=== PATIENT | male | born 2000 | race Caucasian/White ===

== ENCOUNTER 2022-05-15 10:23 | Emergency (ER) | payer OTHER, SELFPAY ==
[2022-05-15 10:55] VITALS: BP 136/84; PULSE 72; RESP 15; TEMP 36.2; O2SAT 99; BMI 29.5
--- NOTE | 2022-05-15 10:56 | DI.RAD.S_ITS ---
PROCEDURE: XR ANKLE LT MIN 3V INDICATIONS: rolled left ankle TECHNIQUE: 3 views of the ankle were acquired. COMPARISON: None. FINDINGS: Bones: No fractures or dislocations. Ankle mortise is normally aligned. No suspicious bony lesions. Soft tissues: Possible tibiotalar joint effusion. Achilles tendon appears normal. IMPRESSION: 1. No acute fracture visualized. 2. Possible tibiotalar joint effusion. 3. If symptoms persist, follow-up radiographs and/or CT or MRI may be helpful for further evaluation. Dictated by: Aftab Baker M.D. on 05/15/2022 at 10:33 Approved by: Aftab Baker M.D. on 05/15/2022 at 10:36
--- NOTE | 2022-05-15 12:50 | ED_ITS ---
HPI - Extremity Injury (Lower) <MARIKA Lu - Last Filed: 05/15/22 15:16> General Chief Complaint: Extremity Injury, Lower Stated Complaint: left ankle injury Time Seen by Provider: 05/15/22 12:50 Source: patient Mode of arrival: Ambulatory History of Present Illness HPI Narrative: This is a 21-year-old male presents to the emergency department after he rolled his ankle last night on a run, states that it became swollen and he has pain on the lateral aspect of his left ankle with any flexion or extension of ankle, denies pain with bearing weight and complains of pain only bending of the ankle. He denies any open wound, states that he took ibuprofen and Tylenol last night which was helpful, has not taken any medication today. He is active and will need a work note if he is unable to go to work. He is concerned about a fracture versus a bad sprain. Related Data Allergies Allergy/AdvReac Type Severity Reaction Status Date / Time No Known Drug Allergies Allergy Verified 05/15/22 10:55 Review of Systems <MARIKA Lu - Last Filed: 05/15/22 15:16> Review of Systems Narrative: Review of systems is negative for acute abnormalities unless otherwise noted in HPI Patient History <MARIKA Lu - Last Filed: 05/15/22 15:16> Social History Smoking Status: Unknown if ever smoked Smoking Status: Unknown if ever smoked alcohol intake frequency: holidays/special occasions only Substance Use Type: does not use Exam <MARIKA Lu - Last Filed: 05/15/22 15:16> Narrative Exam Narrative: Left ankle is neurovascularly intact with appropriate cap refill, extension and flexion of digits, sensation intact to foot throughout, lateral ankle is edematous, ecchymotic, and patient has tenderness over the lateral malleolus although there is numbness due to edema over the lateral malleolus. The edema is consistent throughout the lateral and anterior aspect and mild edema present on the medial aspect, nontender over his medial malleolus, Achilles tendon, proximal 5th and 1st metatarsals. No proximal tib/fib pain, no knee pain at all and patient has tenderness over the ATF, ATT and CFL ligaments. Initial Vital Signs Initial Vital Signs: Vital Signs Temperature 97.2 F L 05/15/22 10:55 Pulse Rate 72 05/15/22 10:55 Respiratory Rate 15 05/15/22 10:55 Blood Pressure 136/84 05/15/22 10:55 Pulse Oximetry 99 05/15/22 10:55 Oxygen Delivery Method 05/15/22 10:55 <Jackie Gonzalez DO - Last Filed: 05/16/22 11:49> Initial Vital Signs Initial Vital Signs: Vital Signs Temperature 97.2 F L 05/15/22 10:55 Pulse Rate 72 05/15/22 10:55 Respiratory Rate 15 05/15/22 10:55 Blood Pressure 136/84 05/15/22 10:55 Pulse Oximetry 99 05/15/22 10:55 Oxygen Delivery Method 05/15/22 10:55 Procedures <MARIKA Lu - Last Filed: 05/15/22 15:16> Orthopedic Splinting/Casting Injury #1: Side: left Lower Extremity Injury Location: ankle Lower Extremity Immobilizer: boot orthosis Other Orthopedic Equipment: crutches Post splinting neuro exam: intact Post splinting vascular exam: intact Placed by: Nursing Course <MARIKA Lu - Last Filed: 05/15/22 15:16> Orders Ordered: Discontinued Medications Acetaminophen (Acetaminophen 325 Mg Tablet) 975 mg PO NOW ONE Stop: 05/15/22 12:51 Last Admin: 05/15/22 13:18 Dose: 975 mg Documented By: AT Ketorolac Tromethamine (Ketorolac 30 Mg/Ml Vial) 30 mg IM NOW ONE Stop: 05/15/22 12:51 Last Admin: 05/15/22 13:19 Dose: 30 mg Documented By: AT Vital Signs Vital signs: Vital Signs - 8 hr 05/15/22 10:55 Temperature 97.2 F L Pulse Rate 72 Respiratory Rate 15 Blood Pressure 136/84 Pulse Oximetry 99 Oxygen Delivery Method Room Air <Jackie Gonzalez DO - Last Filed: 05/16/22 11:49> Orders Ordered: Discontinued Medications Acetaminophen (Acetaminophen 325 Mg Tablet) 975 mg PO NOW ONE Stop: 05/15/22 12:51 Last Admin: 05/15/22 13:18 Dose: 975 mg Documented By: AT Ketorolac Tromethamine (Ketorolac 30 Mg/Ml Vial) 30 mg IM NOW ONE Stop: 05/15/22 12:51 Last Admin: 05/15/22 13:19 Dose: 30 mg Documented By: AT Vital Signs Vital signs: Vital Signs - 8 hr 05/15/22 10:55 Temperature 97.2 F L Pulse Rate 72 Respiratory Rate 15 Blood Pressure 136/84 Pulse Oximetry 99 Oxygen Delivery Method Room Air [facility] - Extremity Injury (Lower) <MARIKA Lu - Last Filed: 05/15/22 15:16> Imaging Data Extremity x-ray #1: Radiologist's Impression: PROCEDURE:? XR ANKLE LT MIN 3V ? INDICATIONS:? rolled left ankle ? TECHNIQUE:? 3 views of the ankle were acquired.? ? COMPARISON:? None. ? FINDINGS:? ? Bones:? No fractures or dislocations.? Ankle mortise is normally aligned.? No suspicious bony lesions.? ? Soft tissues:? Possible tibiotalar joint effusion.? Achilles tendon appears normal.? ? ? IMPRESSION:? 1. No acute fracture visualized. 2. Possible tibiotalar joint effusion. 3. If symptoms persist, follow-up radiographs and/or CT or MRI may be helpful for further evaluation. ?? ? Dictated by: Aftab Baker M.D. on 05/15/2022 at 10:33 ? ? Approved by: Aftab Baker M.D. on 05/15/2022 at 10:36 ? [facility] Narrative Medical decision making narrative: Neurovascularly intact, likely ankle sprain. Discussed conservative measures including rest, elevation, alternating application of ice, pain control and early ambulation as tolerated. No gross ankle instability. No evidence of scott-neue. Exam is pertinent for tenderness over the lateral malleolus, ATT, ATF, and CFL ligaments for his left ankle with ecchymosis, edema and is without pain with axial load through the ankle or medial malleolar pain. Patient was fitted in a walking boot, given crutches for weight-bearing as tolerated, encouraged to follow-up with [facility] approval to follow-up at [facility] in 1 week or less. No bony or soft tissue deformity. There is soft tissue swelling. No tenderness along fibula. No medial malleolar pain. No midfoot pain or pain at base of 5th metatarsal. With compression of proximal tib-fib joint, there is no distal pain. No anterior, posterior or subtalar laxity. No midfoot laxity. Gross neurovascular exam intact. Patient is able to perform a deep knee squat, walk on toes and walk on heels without difficulty. No gross motor deficits. Discussed follow up with PMD and given resources for ortho/sports medicine follow up as needed. Discussed strict return precautions for neurovascular insufficiency or need for repeat imaging/evaluation if pain not vastly improved in 5-7 days for possible occult fracture. X-ray does not reveal any fractures, likely ankle sprain. Discussed discharge instructions with parents and return precautions. Parents expressed verbal understanding and agreement with care plan. All questions answered. Given crutches and an ankle brace. Patient is well-appearing, in no apparent distress, and vital signs stable for discharge home. Discharge Plan Departure Patient Disposition: Home Clinical Impression: Ankle sprain and strain Instructions: Ankle Sprain Activity Restrictions/Additional Instructions: *You have been diagnosed with a left lateral ankle sprain with swelling in the joint. Please follow-up with [facility] for your follow-up with orthopedics in 1 week or so. Okay to be off work until you are able to facility your duties, seen [facility] for return to work. Please take ibuprofen 800 mg every 8 hours with food and water, take this with Tylenol 975 mg. Elevate frequently, ice frequently especially this week and weight bear only as tolerated and try to avoid excessive walking or letting it sit dependent. Hopefully this heals soon, bad sprains can take a couple of weeks or longer to heal. *What to do: *Please continue to take your regular medications as directed. [ ] New medication prescriptions sent to your pharmacy: [ ] [ ] New medication written as a paper prescription [ x No new medications given *Please follow up with your primary care provider in 2-3 days, call for an appointment. Let them know you were seen in the Emergency Department and that we asked that you be seen for follow-up. We will electronically transmit a record of today's note if your PCP is in our system *If you do not have a primary care provider please contact [phone] to establish care with one of the [facility] primary care providers. *Return to Emergency Department if you should have any new, worsening, or concerning symptoms, such as [fever greater than 101F, chills, worsening pain, persistent vomiting or other bothersome symptoms]. Referrals: [facility] [Provider Group] Visit Report Forms: Patient Portal/API <Jackie Gonzalez DO - Last Filed: 05/16/22 11:49> Cosign ED Attending Isabel Attestation: I was immediately available in the department for consultation. Documentation has been reviewed.
[2022-05-15] MEDS: ACETAMINOPHEN 325 MG TABLET 975 MG PO (13:18)
[2022-05-15] MEDS: KETOROLAC 30 MG/ML VIAL IM (13:19)
== END 2022-05-15 13:35 | disposition home or self-care (01) ==
PROVIDERS: Emergency Provider Nurse Practitioner Critical Care Medicine
DX: S93.402A Sprain of unspecified ligament of left ankle, initial encounter (principal); S96.912A Strain of unspecified muscle and tendon at ankle and foot level, left foot, initial encounter; X50.1XXA Overexertion from prolonged static or awkward postures, initial encounter
CPT/HCPCS: 73610; 96372; 99283; 99284; J1885